=== PATIENT | female | born 1940 | race Caucasian/White ===

== ENCOUNTER → 2017-06-02 09:35 | Outpatient (CLI) | payer MEDICARE, OTHER ==
[2012-02-25 08:59] VITALS: BMI 23.4
== END ==
LOC: D.MAMMO 04-18 13:00
DX: Z12.31 Encounter for screening mammogram for malignant neoplasm of breast (principal)

== ENCOUNTER → 2017-06-09 13:41 | Outpatient (CLI) | payer MEDICARE, OTHER ==
[2012-02-25 08:59] VITALS: BMI 23.4
== END | disposition home or self-care (01) ==
LOC: D.CT 13:41
DX: R10.9 Unspecified abdominal pain (principal)

== ENCOUNTER → 2018-06-05 22:53 | Outpatient (CLI) | payer MEDICARE, OTHER ==
[2012-02-25 08:59] VITALS: BMI 23.4
== END | disposition home or self-care (01) ==
LOC: D.MAMMO 11:15
DX: Z12.31 Encounter for screening mammogram for malignant neoplasm of breast (principal)

== ENCOUNTER 2019-06-06 09:00 | Outpatient (CLI) | payer MEDICARE, OTHER ==
[2012-02-25 08:59] VITALS: BMI 23.4
== END 2019-06-06 19:30 | disposition home or self-care (01) ==
LOC: D.MAMMO 09:00
PROVIDERS: ATTEND Family Medicine
DX: Z12.31 Encounter for screening mammogram for malignant neoplasm of breast (principal)

== ENCOUNTER → 2020-01-31 09:35 | Outpatient (CLI) | payer MEDICARE, OTHER ==
[2012-02-25 08:59] VITALS: BMI 23.4
[2020-01-31 10:36] LABS: BILIRUBIN - DIRECT 0.14 mg/dL (0.00-0.30); BILIRUBIN - INDIRECT 0.29 mg/dL (0.00-1.00); BILIRUBIN - TOTAL 0.43 mg/dL (0.2-1.3)
== END | disposition home or self-care (01) ==
LOC: D.US 12-07 09:00 → D.LAB 12-07 09:30 → D.US 12-24 10:30 → D.LAB 12-24 11:00
PROVIDERS: ATTEND Internal Medicine Gastroenterology
DX: K76.0 Fatty (change of) liver, not elsewhere classified (principal)

== ENCOUNTER → 2021-01-19 08:47 | Outpatient (CLI) | payer MEDICARE, OTHER ==
[2012-02-25 08:59] VITALS: BMI 23.4
[2021-01-19 09:23] LABS: ALBUMIN 3.8 g/dL (3.4-5.0); BILIRUBIN - DIRECT 0.15 mg/dL (0.00-0.30); BILIRUBIN - INDIRECT 0.22 mg/dL (0.00-1.00); BILIRUBIN - TOTAL 0.37 mg/dL (0.2-1.3); PROTEIN - SERUM 7.6 g/dL (6.4-8.2)
== END | disposition home or self-care (01) ==
LOC: D.LAB 08:47 → D.US 09:30
PROVIDERS: ATTEND Internal Medicine Gastroenterology
DX: K76.0 Fatty (change of) liver, not elsewhere classified (principal)